=== PATIENT | male | born 1940 | race Caucasian/White ===

== ENCOUNTER 2017-04-01 08:33 | Emergency (ER) | payer MEDICARE, OTHER ==
[~2017-04-01] VITALS: Ht 190.5 cm; Wt 114.3 kg
--- NOTE | ~2017-04-01 | DS ---
Discharge Summary [facility] [address] [place]. [address] NAME: EAMON FIGUEROA : 40 STATUS : DIS IN PAT#: [id number] AGE: 76 ADM/REG DATE : 04/01/17 MR#: [id number] REPORT SERV DATE: 04/08/17 DICTATED BY: KIT CLEMENT DATE: 04/07/17 REPORT STATUS : Draft TRANSCRIBED BY: ANTONIO DATE: 04/07/17 Data Collection from hospitalization DISCHARGE DIAGNOSES: 1. Atrial flutter status post cardioversion. 2. Coronary artery disease status post recent coronary artery bypass grafting. 3. Anticoagulation secondary to atrial flutter. 4. 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 5. Hypertension. 6. Hyperlipidemia. 7. Former smoker. CONSULTATIONS: Tulio Teixeira M.D. PROCEDURES: 1. Transesophageal echocardiogram and cardioversion, 04/01/2017. 2. Cardioversion, 04/03/2017. DISCHARGE MEDICATIONS: 1. Cordarone 200 mg twice a day. 2. Artificial Tears one drop daily as needed. 3. Halfprin 81 mg daily. 4. Lipitor 40 mg at bedtime. 5. Cefadroxil 1 g twice a day. 6. Lovenox 120 mg subcutaneously twice a day. 7. Atrovent two sprays nasally twice a day. 8. Synthroid 25 mcg daily. 9. Lopressor 50 mg twice a day. 10.Rifadin 600 mg daily. 11.Triamcinolone one application topically daily as needed. 12.Jantoven 7 mg daily. He was instructed not to continue naproxen. CONDITION AT DISCHARGE: Stable. DISPOSITION: The patient was discharged home on a low-sodium, low-cholesterol, cardiac diet with activities as instructed. He would follow up with Dr. Nae Desai on 04/14/2017, and in the [facility] office on 04/11/2017. HOSPITAL COURSE: This is a 76-year-old man, who had a recent admission during which time he was diagnosed with obstructive disease of his left main coronary artery ultimately resulting in bypass surgery. This was performed on 03/15/[address] Teixeira. The patient had a largely unremarkable postoperative course. He had been in his usual state of health until 6 a.m. on the morning of this admission, when he experienced the sudden onset of palpitations with a fluttering in his chest. He felt a little dizzy, but had no chest pain. He felt short of breath and his symptoms did not improve, he came to the emergency room where initial EKG suggested atrial flutter with 2:1 AV block. He was started on IV heparin and IV Discharge Summary [facility] [address] [place]. [address] NAME: EAMON FIGUEROA : 40 STATUS : DIS IN PAT#: [id number] AGE: 76 ADM/REG DATE : 04/01/17 MR#: [id number] REPORT SERV DATE: 04/08/17 DICTATED BY: KIT CLEMENT DATE: 04/07/17 REPORT STATUS : Draft TRANSCRIBED BY: ANTONIO DATE: 04/07/17 diltiazem without any significant reduction in his heart rate. He continued to have a heart rate of approximately 140, but was hemodynamically stable. He has no history of atrial fibrillation or flutter, and said he had no palpitations until early on the morning of this admission. He had no subjective fevers or chills. He said he has urinated multiple times the previous evening, but workup did not demonstrate hypokalemia or hypomagnesemia. He has been recovering. His activity level was improving. He had no issues with pain. He was admitted to the hospital at this time for further evaluation and treatment. Upon admission, he was felt to have narrow complex tachycardia, most consistent with atrial flutter with 2-1 block and recommended that he undergo anticoagulation with IV heparin. We were going to use warfarin in preference to Eliquis. It was recommended that he undergo transesophageal echocardiogram-guided cardioversion. For now we would defer antiarrhythmic therapy, but if the patient had recurrence we would consider an antiarrhythmic versus radiofrequency ablation for what appeared to be typical flutter. Metoprolol was continued for now. Later that day, he underwent a transesophageal echocardiogram and cardioversion, he tolerated this well. There were no complications. There was no evidence of left atrial appendage thrombosis. He had successful cardioversion to a normal sinus rhythm. The following day aspirin and atorvastatin were continued. TSH was elevated. Synthroid was increased. He was seen by Dr. Tulio Teixeira. He had no new complaints. He was now in a normal sinus rhythm after cardioversion. His incisions were healing well. He had no new complaints. INR level was 1.1. A dose of Coumadin was given. On 04/03/2017 the patient remained in atrial flutter. There was no improvement with amiodarone. He had no new complaints. He had the onset of atrial flutter the previous day, had mild dyspnea and a funny feeling in the back of his head. He had no complaints of chest pain. Atrial flutter was refractory to metoprolol. There was no conversion with amiodarone drip. He had been on a heparin drip since his cardioversion. Coumadin was continued as well as aspirin and atorvastatin. The patient underwent DC cardioversion for his atrial flutter refractory to medical therapy. The patient converted to a normal sinus rhythm with a rate of 77 beats per minute. On 04/04/2017, he had no chest pain or dyspnea. He was in a sinus rhythm. He was alert and cooperative. INR level was 1.3. Lovenox bridge was being performed. He was going home on Coumadin. Discharge instructions were given. Due to his improved and stable condition, he was discharged home with the above-stated instructions. Information collected by: Jenny Reeder I submit the above information as my discharge summary. TG/MODL Kit Clement MD / [id number] CC: Humberto Caceres M.D. James Zellner, M.D.
--- NOTE | ~2017-04-01 | TEE ---
Transesophageal Echocardiogram [facility] [address] [place]. [address] NAME: EAMON FIGUEROA : 40 STATUS : ADM IN PAT#: [id number] AGE: 76 ADM/REG DATE : 04/01/17 MR#: [id number] REPORT SERV DATE: 04/01/17 DICTATED BY: KAMLESH HARMON DATE: 04/01/17 REPORT STATUS : Draft TRANSCRIBED BY: ANTONIO DATE: 04/01/17 This is a transesophageal echocardiogram and cardioversion requested by Dr. Kit Clement. INDICATIONS: Atrial flutter. HISTORY OF PRESENT ILLNESS: This is a 76-year-old man who is about a week or so after coronary artery bypass grafting. He presents in atrial flutter with a rapid rate. He was started on IV heparin. He is referred for transesophageal echocardiogram and cardioversion. After informed consent, the patient was sedated with propofol by the Anesthesia Department. The transesophageal probe was placed on the first attempt. A single cardioversion was delivered. There were no complications. TRANSESOPHAGEAL ECHOCARDIOGRAM: 1. The aortic valve is trileaflet and opens adequately. 2. The ascending aorta is normal in size. 3. There is no evidence of left atrial appendage thrombus. 4. The mitral valve is structurally normal. 5. Left ventricular size and systolic function appeared normal. 6. The left atrial size is normal. 7. Right-sided chambers are normal in size. 8. The tricuspid valve is structurally normal. 9. There is no evidence of pericardial effusion. DOPPLER: Pulse wave Doppler in the left atrial appendage is greater than 40 cm/second. COLOR FLOW: There is mild aortic, mitral, and tricuspid regurgitation. CARDIOVERSION: A single synchronized biphasic defibrillation was delivered. Atrial flutter converted to normal sinus rhythm. IMPRESSION: 1. No evidence of left atrial appendage thrombus. 2. Successful cardioversion to normal sinus rhythm. CASSIUS/ANTONIO Kamlesh Harmon M.D. / [id number] CC: Humberto Caceres M.D.
--- NOTE | ~2017-04-01 | HP ---
History And Physical [facility] [address] [place]. [address] NAME: EAMON JUNIOR : 40 STATUS : ADM IN PAT#: [id number] AGE: 76 ADM/REG DATE : 04/01/17 MR#: [id number] REPORT SERV DATE: 04/01/17 DICTATED BY: KIT CLEMENT DATE: 04/01/17 REPORT STATUS : Draft TRANSCRIBED BY: MODMartina DATE: 04/01/17 DATE OF ADMISSION: 04/01/2017 ADMISSION DIAGNOSIS: Atrial flutter. HISTORY OF PRESENT ILLNESS: Mr. Junior is a very pleasant 76-year-old male, known to our group, followed by Dr. Chaim Desai and known to me from recent admission during which time he was diagnosed with obstructive disease of his left main coronary artery ultimately resulting in bypass surgery. This was performed on 03/15/[address] Teixeira and the patient had a largely unremarkable postoperative course. He was in his usual state of health until 6 a.m. this morning when he experienced sudden onset of palpitations with a fluttering in his chest. He felt a little dizzy, but had no chest pain. He felt short of breath and symptoms did not improve, so he came to the ER where an initial EKG suggested atrial flutter with 2:1 block. He was started on IV heparin and IV diltiazem without any significant reduction in his heart rate. He continues to have heart rate of approximately 140, but is hemodynamically stable. He has no history of atrial fibrillation or flutter and states he has had no palpitations until early this morning. He has had no subjective fevers or chills. He does remark that he urinated multiple times yesterday evening, but workup did not demonstrate any hypokalemia or hypomagnesemia. He has been recovering. His activity level has been improving and he has had no issues with pain. PAST MEDICAL HISTORY: 1. Coronary heart disease with prior stenting five years ago and recent bypass surgery on 03/15/2017. 2. Status post right knee replacement with postoperative course complicated by MRSA infection requiring redo and washout, currently on long-term antibiotics. 3. The patient has hypertension, hyperlipidemia. 4. He has remote tobacco abuse and gout. SURGICAL HISTORY: Notable for right knee surgery, tonsillectomy, and mass removal of the left calf. FAMILY HISTORY: Grandmother had heart disease. SOCIAL HISTORY: The patient is . is at bedside. Former smoker of 35 years, quit in . Drinks two drinks per day. REVIEW OF SYSTEMS: Per HPI, otherwise, negative. PHYSICAL EXAMINATION: VITAL SIGNS: Blood pressure is 110/72, pulse is 140, respiratory rate 16. GENERAL: A well-developed, well-nourished, male, no apparent distress. HEENT: Sclerae anicteric. Mucous membranes are moist. History And Physical [address] [address] NAME: EAMON JUNIOR : 40 STATUS : ADM IN [facility]#: [id number] AGE: 76 ADM/REG DATE : 04/01/17 MR#: [id number] REPORT SERV DATE: 04/01/17 DICTATED BY: KIT CLEMENT DATE: 04/01/17 REPORT STATUS : Draft TRANSCRIBED BY: ANTONIO DATE: 04/01/17 NECK: Supple. CARDIOVASCULAR: Tachycardic, but regular. No murmurs appreciated. PULMONARY: Good inspiratory effort. Clear lung rangel bilaterally. ABDOMEN: Soft, nondistended, nontender. EXTREMITIES: Mild nonpitting edema is present. Right knee with scar from recent surgery. No overlying erythema or redness. LABORATORY DATA: Reviewed. Troponin less than 0.02. BNP 130, potassium 4.6, 0.6, hemoglobin 11.5, platelets 296. INR 1.2. EKG demonstrates narrow complex tachycardia at a heart rate of 133 with a pattern most suggestive of atrial flutter with 2:1 block. Echocardiogram from 03/14/2017 demonstrates LVEF 55%. Normal RV size and function and mild mitral regurgitation. No other significant valvular heart disease. IMPRESSION/RECOMMENDATIONS: 1. Narrow complex tachycardia, most consistent with atrial flutter with 2:1 block. 2. Coronary heart disease with remote stenting and recent bypass surgery. 3. Hypertension. 4. Hyperlipidemia. 5. Chronic staph infection of the right knee. I have recommended anticoagulation with IV heparin. After consulting with CV Surgery, we will use warfarin in preference to Eliquis given recent proximity to bypass surgery. I have recommended AMANDA-guided cardioversion. For now, will defer antiarrhythmic therapy, but if the patient has recurrence, will consider an antiarrhythmic versus radiofrequency ablation for what appears to be typical flutter. We will continue metoprolol for now. The patient has tentatively been scheduled for AMANDA-guided cardioversion this afternoon. I have discussed the relative risks and benefits as well as alternatives with him. He is agreeable to proceed. JOSEPH/ANTNOIO Kit Clement MD / [id number] CC: Humberto Caceres M.D.
[~2017-04-01 08:33] MED LIST: ALEVE220 MG PO; ASAB PO; ATRONASAL6 NAS; C5; C5 PO; DURICEF PO; LEVOTHYROXIN25 MCG PO; LIPITOR40 PO; LOP25 PO; METAMUCIL CAPSULE PO; MIRALAX POWDER1 PKT PO; MOBIC15 MG PO; PCET PO; PERCOCET 10/3251 TAB PO; RIFADIN 300 MG300 MG PO; TRIAMCINOLONE454 GM TOP; ULTRAM50 PO; VYTORIN 10/40 T1 TAB PO; Z300 PO; ZOCOR40 PO
[2017-04-01 09:33] LABS: BASOPHILS 0 %; EOSINOPHILS 0.2 %; EOSINOPHILS ABSOLUTE 0.01 10/3/uL (0.0-0.53); ER CBC TAT 0 Hrs 05 MinsNP; HEMATOCRIT 36.2 % (40.0-51.0); HEMOGLOBIN 11.5 g/dL (13.6-17.8); IMMATURE GRANULOCYTES 0.3 %; IMMATURE GRANULOCYTES ABSOLUTE 0.02 10/3/uL (0.0-0.11); LYMPHOCYTES 12.6 %; LYMPHOCYTES ABSOLUTE 0.74 10/3/uL (0.67-4.30); MANUAL DIFF NO %; MEAN CORPUS HGB CONC 31.8 g/dL (32.0-36.0); MEAN CORPUSCULAR HEMOGLOB 32.9 pg (26.0-34.0); MEAN CORPUSCULAR VOLUME 103.4 fL (80-100); MEAN PLATELET VOLUME 9.5 fL (9.2-13.0); MONOCYTES 9.7 %; MONOCYTES ABSOLUTE 0.57 10/3/uL (0.21-1.20); NEUTROPHILS 77.2 %; NEUTROPHILS ABSOLUTE 4.53 10/3/uL (2.02-8.40); PLATELET COUNT 296 10/3/uL (150-400); RBC DISTRIBUTION WIDTH 15.5 % (12.0-16.0); WHITE BLOOD CELLS 5.9 10/3/uL (4.5-10.5)
[2017-04-01 09:41] LABS: INTERNATIONAL NORMAL RATI 1.2 UNITS (-); PARTIAL THROMBO TIME 33.3 SEC (22.5-37.2); PROTIME (NOT ORD) 14.6 SEC (12.0-14.5)
[2017-04-01 09:57] LABS: BUN (BLOOD UREA NITROGEN) 12 MG/DL (6-23); CALCIUM, SERUM 9.3 MG/DL (8.5-10.4); CHEST PAIN PROFILE TAT 0 Hrs 29 Mins; CHLORIDE, SERUM 103 MMOL/L (96-112); CO2 (CARBON DIOXIDE) 28 MMOL/L (24-34); GFR AFRICAN AMERICAN 113 ML/MIN (>=60); GFR NON AFRICAN AMERICAN 98 ML/MIN (>=60); GLUCOSE, SERUM 89 MG/DL (60-99); POTASSIUM, SERUM 4.5 MMOL/L (3.5-5.3); SODIUM, SERUM 137 MMOL/L (135-148); TROPONIN I <0.02 NG/ML (<0.05)
[2017-04-01] MEDS ORDERED: ALEVE220 MG PO (10:37)
[2017-04-01] MEDS ORDERED: SYN.025B PO (10:38)
[2017-04-01] MEDS ORDERED: HALF81 PO (10:38)
[2017-04-01] MEDS ORDERED: CEFADROXIL1 GM PO (10:38)
[2017-04-01] MEDS ORDERED: RIFADIN 300 MG300 MG PO (10:38)
[2017-04-01] MEDS ORDERED: ATRONASAL6 NAS (10:39)
[2017-04-01] MEDS ORDERED: LOP50 PO (10:39)
[2017-04-01] MEDS ORDERED: LIPITOR40 PO (10:39)
[2017-04-01] MEDS ORDERED: REFRESH OPH (10:40)
[2017-04-01] MEDS ORDERED: TRIAMCINOLONE C80 GM TOP (10:40)
[2017-04-02 05:31] LABS: INTERNATIONAL NORMAL RATI 1.1 UNITS (-); PROTIME (NOT ORD) 14.5 SEC (12.0-14.5)
[2017-04-03 06:00] LABS: BASOPHILS 0.2 %; BASOPHILS ABSOLUTE 0.01 10/3/uL (0.0-0.16); EOSINOPHILS 1.7 %; HEMATOCRIT 35.6 % (40.0-51.0); HEMOGLOBIN 11.3 g/dL (13.6-17.8); IMMATURE GRANULOCYTES 0.3 %; IMMATURE GRANULOCYTES ABSOLUTE 0.02 10/3/uL (0.0-0.11); LYMPHOCYTES 13.6 %; LYMPHOCYTES ABSOLUTE 0.81 10/3/uL (0.67-4.30); MEAN CORPUS HGB CONC 31.7 g/dL (32.0-36.0); MEAN CORPUSCULAR HEMOGLOB 33.2 pg (26.0-34.0); MEAN CORPUSCULAR VOLUME 104.7 fL (80-100); MEAN PLATELET VOLUME 9.5 fL (9.2-13.0); MONOCYTES 14.5 %; MONOCYTES ABSOLUTE 0.86 10/3/uL (0.21-1.20); NEUTROPHILS 69.7 %; NEUTROPHILS ABSOLUTE 4.15 10/3/uL (2.02-8.40); PLATELET COUNT 262 10/3/uL (150-400); RBC DISTRIBUTION WIDTH 16.1 % (12.0-16.0)
[2017-04-03 06:02] LABS: MANUAL DIFF NO %
[2017-04-03 06:06] LABS: INTERNATIONAL NORMAL RATI 1.1 UNITS (-); PROTIME (NOT ORD) 14.3 SEC (12.0-14.5)
[2017-04-03 06:13] LABS: CALCIUM, SERUM 9.1 MG/DL (8.5-10.4); CHLORIDE, SERUM 104 MMOL/L (96-112); CO2 (CARBON DIOXIDE) 25 MMOL/L (24-34); CREATININE 0.58 MG/DL (0.70-1.30); GFR AFRICAN AMERICAN 115 ML/MIN (>=60); GFR NON AFRICAN AMERICAN 99 ML/MIN (>=60); POTASSIUM, SERUM 3.7 MMOL/L (3.5-5.3); SODIUM, SERUM 136 MMOL/L (135-148)
[2017-04-03 06:19] LABS: BUN (BLOOD UREA NITROGEN) 8 MG/DL (6-23); GLUCOSE, SERUM 112 MG/DL (60-99)
[2017-04-04 04:09] LABS: INTERNATIONAL NORMAL RATI 1.3 UNITS (-); PROTIME (NOT ORD) 15.9 SEC (12.0-14.5)
[2017-04-04 04:10] LABS: BASOPHILS 0.2 %; BASOPHILS ABSOLUTE 0.01 10/3/uL (0.0-0.16); EOSINOPHILS 2.1 %; HEMATOCRIT 36.1 % (40.0-51.0); HEMOGLOBIN 11.5 g/dL (13.6-17.8); IMMATURE GRANULOCYTES 0.6 %; IMMATURE GRANULOCYTES ABSOLUTE 0.03 10/3/uL (0.0-0.11); LYMPHOCYTES 18.5 %; LYMPHOCYTES ABSOLUTE 0.88 10/3/uL (0.67-4.30); MANUAL DIFF NO %; MEAN CORPUS HGB CONC 31.9 g/dL (32.0-36.0); MEAN CORPUSCULAR VOLUME 103.7 fL (80-100); MEAN PLATELET VOLUME 9.6 fL (9.2-13.0); MONOCYTES 13.3 %; MONOCYTES ABSOLUTE 0.63 10/3/uL (0.21-1.20); NEUTROPHILS 65.3 %; PLATELET COUNT 248 10/3/uL (150-400); RBC DISTRIBUTION WIDTH 16.2 % (12.0-16.0); RED CELL COUNT 3.48 10/6/uL (4.7-6.1); WHITE BLOOD CELLS 4.8 10/3/uL (4.5-10.5)
[2017-04-04 04:13] LABS: BUN (BLOOD UREA NITROGEN) 9 MG/DL (6-23); CALCIUM, SERUM 9.2 MG/DL (8.5-10.4); CHLORIDE, SERUM 101 MMOL/L (96-112); CO2 (CARBON DIOXIDE) 29 MMOL/L (24-34); CREATININE 0.61 MG/DL (0.70-1.30); GFR AFRICAN AMERICAN 112 ML/MIN (>=60); GFR NON AFRICAN AMERICAN 97 ML/MIN (>=60); GLUCOSE, SERUM 104 MG/DL (60-99); SODIUM, SERUM 137 MMOL/L (135-148)
[2017-04-04] MEDS ORDERED: CORDARONE PO (12:51)
[2017-04-04] MEDS ORDERED: LOVENOX120 SC (12:51)
[2017-04-04] MEDS ORDERED: JANTOVEN7.5 MG PO (12:51)
[2017-04-11] MEDS ORDERED: LOP50 PO (17:24)
[2017-04-11] MEDS ORDERED: KLOR-CON M2020 MEQ PO (17:25)
[2017-04-11] MEDS ORDERED: LEVOTHYROXIN50 MCG PO (17:25)
[2017-04-11] MEDS ORDERED: L20 PO (17:25)
[2017-04-11] MEDS ORDERED: HALF81 PO (17:26)
[2017-04-11] MEDS ORDERED: REFRESH OPH (17:26)
[2017-04-11] MEDS ORDERED: PACERONE200 MG PO (17:26)
[2017-04-11] MEDS ORDERED: LIPITOR40 PO (17:27)
[2017-04-11] MEDS ORDERED: CEFADROXIL1 GM PO (17:27)
[2017-04-11] MEDS ORDERED: MIRALAX POWDER1 PKT PO (17:27)
[2017-04-11] MEDS ORDERED: ATRONASAL6 NAS (17:28)
[2017-04-11] MEDS ORDERED: RIFADIN 300 MG300 MG PO (17:28)
[2017-04-11] MEDS ORDERED: C1 PO (17:29)
[2017-04-11] MEDS ORDERED: INDOMETHACIN PO (17:30)
== END 2017-04-04 15:14 | disposition home or self-care (01) ==
LOC: ENRESERVTM → ENRESERVDT → ENRESERV → ER 08:33 → 5NO 11:14 → ER 11:14 → 6NO 11:14 → CCU 11:14 → 6NO 04-03 10:39 → CCU 04-03 10:39 → 5NO 04-04 08:50 → CCU 04-04 08:50 → 5NO 04-04 15:14 → ER 04-04 15:14
PROVIDERS: Emergency Medicine; Internal Medicine Cardiovascular Disease
DX: I48.92 Unspecified atrial flutter (principal); J44.9 Chronic obstructive pulmonary disease, unspecified; I10 Essential (primary) hypertension; Z86.73 Personal history of transient ischemic attack (TIA), and cerebral infarction without residual deficits; Z79.82 Long term (current) use of aspirin; Z79.899 Other long term (current) drug therapy
CPT/HCPCS: 71010; 80048; 83735; 83880; 84443; 84484; 85025; 85610; 85730; 87641; 92960; 93005; 96374; 96375; 96376; 99285; A9270-GY; J0282; J2405